=== PATIENT | female | born 1985 | race Caucasian/White ===

== ENCOUNTER 2020-04-06 10:49 | Emergency (ER) | payer OTHER, SELFPAY ==
[2020-04-06 11:00] VITALS: BP 154/102; PULSE 98; RESP 12; TEMP 36.7; O2SAT 99
--- NOTE | 2020-04-06 11:13 | ED.GENADULT ---
HPI - General Adult General Chief complaint: Upper Respiratory Infection Stated complaint: body aches/chills/cough/sore throat Time Seen by Provider: 04/06/20 11:13 Source: patient and RN notes reviewed Mode of arrival: ambulatory Limitations: no limitations History of Present Illness HPI narrative: 35 year old female who presents to [facility] care with complaints of body aches, chills, cough, sinus drainage, and sore throat since Sunday. 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 Patient states that she has been running a 99.8 temperature and has been taking Tylenol and Mucinex for her symptoms. Patient states that she has a bad headache and is experiencing extreme fatigue and chills also. patient states that she had a COVID test on the which was negative prior to obtaining an EGD test on the where she was diagnosed with gastritis and is taking Protonix and Carafate medications. MD complaint: body aches, chills, cough, sore throat Onset (ago): day(s) (4) Location: head Radiation: non-radiation Severity: severe Severity scale (1-10): 8 (geeralized aching) Quality: aching Pain Consistency: constant Relieving factors: none Exacerbating factors: eating and movement Associated symptoms: cough, fever/chills, headaches, malaise and other (fatigue) Treatments prior to arrival: other (Tylenol and Mucinex) Related Data Home Medications Medication Instructions Recorded Confirmed pantoprazole PO 04/06/20 sucralfate 04/06/20 Allergies Allergy/AdvReac Type Severity Reaction Status Date / Time No Known Allergies Allergy Verified 04/06/20 11:20 Review of Systems Review of Systems: Narrative: CONSTITUTIONAL: Positive fever, chills, or sweats. EYES: Denies visual changes, redness, or discharge. ENT: Positive for rhinorrhea, congestion, sore throat, no otalgia. CARDIOVASCULAR: Denies chest pain, palpitations, or edema. RESPIRATORY: Positive cough no dyspnea. GASTROINTESTINAL: Denies abdominal pain, nausea, vomiting, or diarrhea. GENITOURINARY: Denies dysuria or hematuria. SKIN: Denies rash or itching. MUSCULOSKELETAL: Denies back pain, joint pain, positive generalized body aches and fatigue NEUROLOGIC: Positive headache, no numbness, or weakness, states fatigue PSYCHIATRIC: Denies anxiety or depression. All systems reviewed & are unremarkable except as noted in HPI and below PMFSH Past Medical History Medical History (Updated 04/06/20 @ 11:43 by Elsy Aguilar NP) Gastritis Migraines Surgical History Surgical History (Updated 04/06/20 @ 11:44 by Elsy Aguilar NP) History of cervical spinal surgery History of cholecystectomy History of placement of ear tubes History of tonsillectomy and adenoidectomy Family History Family History (Updated 04/06/20 @ 11:42 by Elsy Aguilar NP) Mother Diabetes mellitus Father Heart disease Social History Social History (Updated 04/06/20 @ 11:42 by Elsy Aguilar NP) Smoking status: Never smoker Alcohol intake: current Substance use: never Living arrangements: with friend(s) Gender identity (if verbalized by the patient): Female Comments At time of signature, agree with nursing past medical, surgical, social and family history. There is no relevant family history pertinent to the presenting complaint Exam Narrative: Exam Narrative: GENERAL: Illl-appearing, well-nourished, and in no acute distress. HEAD: Normocephalic, atraumatic. EYES: PERRLA and EOMI. ENT: Nares light red, clear rhinorrhea no epistaxis. Mucous membranes moist. TM's normal with good light reflex some previous scarring noted, throat red with no tonsil enlargement or any exudates. post nasal drainage present NECK: Supple. no lymphadenopathy CHEST: Clear to auscultation. No respiratory distress.dry cough with no acute dyspnea or any tachypnea, SAO2 99% on room air HEART: Regular rate and rhythm. No murmur heard. Normal perip
== END 2020-04-06 11:36 | disposition home or self-care (01) ==
PROVIDERS: Emergency Provider Registered Nurse
DX: U07.1 COVID-19 (principal); J02.9 Acute pharyngitis, unspecified
CPT/HCPCS: 87081; 87426; 87880; 99213; C9803; G0463